=== PATIENT | female | born 1950 | race Two or more races ===

== ENCOUNTER 2016-10-17 17:56 | Inpatient (IN) | payer MEDICARE, MEDICAID ==
[~2016-10-17] VITALS: Ht 154.9 cm; Wt 60.8 kg
[~2016-10-17 17:56] MED LIST: AGG25C; BECL0.07; CARISOPRODOL; FAMO20IN2 IV; FLU220IH IN; FLUNPOW; FURO20TA; HYDR5CAP; LEVAAER4; LEVEMIR; LISI10TA6; LORA-655 PO; METF-86; NITR0.4D11; OME20GT GT; PROM25TA5 PO; SERT-160; SIMV-8; ZOLP10TA6 OR; [UNRECOGNIZED DRUG - CODE]
[2016-10-17 18:46] LABS: Albumin 3.5 g/dL (3.4-5.0); Calcium 8.4 mg/dL (8.5-10.1); Magnesium 2.3 mg/dL (1.6-2.6); Potassium 4.3 mmol/L (3.5-5.1)
[2016-10-17 18:49] LABS: Bilirubin, Total 0.2 mg/dL (0.2-1.0)
[2016-10-17 19:10] LABS: Basophils # (auto) 0 uL; Basophils % (auto) 0.5 % (0.0-2.0); DEFINITIVE VIEW TRANSMISSION; Eosinophils # (auto) 0.1 uL; Eosinophils % (auto) 1.5 % (0.0-7.0); Hematocrit 42.8 % (36.0-46.0); Hemoglobin 13.7 g/dL (12.2-16.2); Lymphocytes % (auto) 36.3 % (10.0-50.0); Mean Corpuscular Hemoglobin 26.6 pg (28.0-32.0); Mean Corpuscular Hgb Conc. 32.1 g/dL (32.0-36.0); Mean Corpuscular Volume 82.8 fL (80.0-100.0); Monocytes # (auto) 0.3 uL; Monocytes % (auto) 5.8 % (0.0-12.0); Neutrophils # (auto) 3.1 uL; Neutrophils % (auto) 55.9 % (37.0-80.0); Platelet Count (auto) 201 10^3/uL (140-450); Red Cell Distribution Width 13.9 % (11.6-16.0); White Blood Cell 5.6 10^3/uL (4.4-10.8)
[2016-10-17] MEDS ORDERED: DEXTROSE 50% SYRINGE 50 ML IV ONE (19:22)
[2016-10-17] MEDS ORDERED: ONDANSETRON HCL 4 MG/2 ML VIAL IV ONE (19:30)
[2016-10-17] MEDS ORDERED: ASPirin 81 mg TAB PO ONE (19:30)
[2016-10-17] MEDS ORDERED: DEXTROSE (50%) 50ML SYRG IV ONE (19:30)
[2016-10-17] MEDS ORDERED: MORPHINE SULFATE 4 MG/ML SYRG IV ONE (19:30)
[2016-10-17 20:15] LABS: B-Type Natriuretic Peptide 47.84 pg/mL (0-100)
[2016-10-17 20:22] LABS: Temperature: 22.7 C (20.0-25.0)
[2016-10-17] MEDS ORDERED: SODIUM CHLORIDE 0.9% 500 ML IV ONE (20:30)
[2016-10-17] MEDS ORDERED: NITROGLYCERIN 0.4 MG SL TAB SL PRN (21:15)
[2016-10-17] MEDS ORDERED: MORPHINE SULF INJ 2 MG/ML SYRINGE 1ML IV PRN (21:15)
[2016-10-17] MEDS ORDERED: ACETAMINOPHEN 325 MG TAB PO PRN (21:15)
[2016-10-17] MEDS ORDERED: LORazepam 0.5 MG TAB PO PRN (21:15)
[2016-10-17] MEDS ORDERED: ONDANSETRON HCL 4 MG/2 ML VIAL IV PRN (21:15)
[2016-10-17] MEDS ORDERED: DEXTROSE (50%) 50ML SYRG IV PRN (21:15)
[2016-10-17] MEDS ORDERED: CARISOPRODOL 350 MG TAB PO PRN (21:15)
[2016-10-17] MEDS ORDERED: HYDROcodone-ACET 5/325MG TAB PO PRN (21:15)
[2016-10-17] MEDS ORDERED: TEMAZEPAM 15 MG CAP PO PRN (21:15)
[2016-10-17] MEDS ORDERED: DOCUSATE SOD 100 MG CAP PO PRN (21:15)
[2016-10-17] MEDS ORDERED: ENOXAPARIN SOD 40 MG/0.4 ML SYRINGE SC SCH (21:22)
[2016-10-17] MEDS: ASPIRIN-DIPYRIDAMOLE (25/200MG) CAPSULE PO SCH (22:00)
[2016-10-17] MEDS ORDERED: ATORVASTATIN 20 MG TAB PO SCH (22:00)
[2016-10-17] MEDS: FAMOTIDINE 20 MG TAB PO SCH (22:09)
[2016-10-18] MEDS: ACCU-CHEK COMFORT CURVE STRIP VI SCH ×3 (00:09→12:00)
[2016-10-18] MEDS: InsuLIN REG 1unit/0.01ml Soln (100units/ml) SC SCH ×2 (00:22→06:41)
[2016-10-18 03:53] LABS: Basophils # (auto) 0 uL; Basophils % (auto) 0.5 % (0.0-2.0); DEFINITIVE VIEW TRANSMISSION; Eosinophils # (auto) 0.1 uL; Eosinophils % (auto) 1.4 % (0.0-7.0); Hematocrit 37.3 % (36.0-46.0); Hemoglobin 11.8 g/dL (12.2-16.2); Lymphocytes # (auto) 2.3 uL; Lymphocytes % (auto) 38.9 % (10.0-50.0); Mean Corpuscular Hemoglobin 26.2 pg (28.0-32.0); Mean Corpuscular Hgb Conc. 31.6 g/dL (32.0-36.0); Mean Corpuscular Volume 83.1 fL (80.0-100.0); Mean Platelet Volume 8.8 fL (7.4-10.4); Monocytes # (auto) 0.3 uL; Monocytes % (auto) 4.9 % (0.0-12.0); Neutrophils # (auto) 3.2 uL; Neutrophils % (auto) 54.3 % (37.0-80.0); Platelet Count (auto) 184 10^3/uL (140-450); Red Cell Distribution Width 13.7 % (11.6-16.0); White Blood Cell 5.9 10^3/uL (4.4-10.8)
[2016-10-18 04:23] LABS: Albumin 3.2 g/dL (3.4-5.0); BUN/Creatinine Ratio 19.2; Calcium 8.5 mg/dL (8.5-10.1); Potassium 4.3 mmol/L (3.5-5.1)
[2016-10-18 04:33] LABS: Bilirubin, Total 0.2 mg/dL (0.2-1.0); Total Protein 5.8 g/dL (6.4-8.2)
[2016-10-18 09:50] VITALS: BP 122/55
[2016-10-18] MEDS: FAMOTIDINE 20 MG TAB PO SCH (10:00)
[2016-10-18] MEDS ORDERED: FUROSEMIDE 20 MG TAB PO SCH (10:00)
[2016-10-18] MEDS: ASPIRIN-DIPYRIDAMOLE (25/200MG) CAPSULE PO SCH (10:00)
[2016-10-18] MEDS ORDERED: LISINOPRIL 10 MG TAB PO SCH (10:00)
[2016-10-18] MEDS ORDERED: SERTRALINE HCL 50 MG TAB PO SCH (10:00)
[2016-10-18] MEDS ORDERED: CHOL20007 OR (11:08)
[2016-10-18] MEDS ORDERED: METO25TA62 PO (11:08)
[2016-10-18] MEDS ORDERED: CLOP75TA41 PO (11:08)
[2016-10-18] MEDS ORDERED: BACL20TA PO (11:08)
[2016-10-18] MEDS ORDERED: DONE5TAB28 PO (11:08)
[2016-10-18] MEDS ORDERED: GABA600T PO (11:08)
[2016-10-18] MEDS ORDERED: LEVO75TA6 PO (11:08)
[2016-10-18 17:23] VITALS: BP 122/55
== END 2016-10-18 17:40 | disposition home or self-care (01) | DRG 313 ==
LOC: ER 18:01 → TELE 18:02 → TELE-E-ADS 10-18 09:13
PROVIDERS: ADMIT Internal Medicine; ATTEND Internal Medicine
DX: R07.89 Other chest pain (principal); E11.22 Type 2 diabetes mellitus with diabetic chronic kidney disease; E11.65 Type 2 diabetes mellitus with hyperglycemia; E78.5 Hyperlipidemia, unspecified; F32.9 Major depressive disorder, single episode, unspecified; N18.3 Chronic kidney disease, stage 3 (moderate); R00.1 Bradycardia, unspecified; I12.9 Hypertensive chronic kidney disease with stage 1 through stage 4 chronic kidney disease, or unspecified chronic kidney disease; I25.10 Atherosclerotic heart disease of native coronary artery without angina pectoris; J44.9 Chronic obstructive pulmonary disease, unspecified; J45.909 Unspecified asthma, uncomplicated; Z82.49 Family history of ischemic heart disease and other diseases of the circulatory system; Z83.3 Family history of diabetes mellitus; Z86.73 Personal history of transient ischemic attack (TIA), and cerebral infarction without residual deficits; Z79.82 Long term (current) use of aspirin; Z79.4 Long term (current) use of insulin; Z79.899 Other long term (current) drug therapy; Z98.51 Tubal ligation status; Z90.89 Acquired absence of other organs; Z98.890 Other specified postprocedural states; Z83.511 Family history of glaucoma
CPT/HCPCS: 36415; 71010; 80053; 82962; 83735; 83880; 84484; 85025; 93005; 94761; 96374; 96375; J1815; J2405

== ENCOUNTER 2017-07-17 14:35 | Inpatient (IN) | payer MEDICARE, MEDICAID ==
[~2017-07-17] VITALS: Ht 152.4 cm; Wt 63.9 kg
[~2017-07-17 14:35] MED LIST changes: +BACL20TA PO; +CHOL20007 OR; +CLOP75TA41 PO; +DONE5TAB28 PO; +GABA600T PO; +LEVO75TA6 PO; +METO25TA62 PO
[2017-07-17] MEDS ORDERED: SODIUM CHLORIDE 0.9% 1,000 ML IV ONE (15:14)
[2017-07-17] MEDS ORDERED: ASPirin 81 mg TAB PO ONE (15:15)
[2017-07-17 15:47] LABS: Basophils # (auto) 0 uL; Eosinophils # (auto) 0.1 uL; Eosinophils % (auto) 2.2 % (0.0-7.0); Hematocrit 39.5 % (36.0-46.0); Hemoglobin 12.9 g/dL (12.2-16.2); Lymphocytes # (auto) 1.6 uL; Lymphocytes % (auto) 39.4 % (10.0-50.0); Mean Corpuscular Hemoglobin 27.7 pg (28.0-32.0); Mean Corpuscular Hgb Conc. 32.7 g/dL (32.0-36.0); Mean Corpuscular Volume 84.6 fL (80.0-100.0); Mean Platelet Volume 8.6 fL (6.9-10.8); Monocytes # (auto) 0.2 uL; Monocytes % (auto) 5.5 % (0.0-12.0); Neutrophils # (auto) 2.1 uL; Neutrophils % (auto) 51.9 % (37.0-80.0); Nucleated Red Blood Cells % 0.1 %; Platelet Count (auto) 130 10^3/uL (140-450); Red Cell Distribution Width 14.5 % (11.8-14.3); White Blood Cell 4.1 10^3/uL (4.4-10.8)
[2017-07-17] MEDS ORDERED: HYDROcodone-ACET 5/325MG TAB PO PRN (16:00)
[2017-07-17] MEDS ORDERED: ONDANSETRON HCL 4 MG/2 ML VIAL IV PRN (16:00)
[2017-07-17] MEDS ORDERED: DEXTROSE (50%) 50ML SYRG IV PRN (16:00)
[2017-07-17] MEDS ORDERED: MORPHINE SULF INJ 2 MG/ML SYRINGE 1ML IV PRN (16:00)
[2017-07-17] MEDS ORDERED: NITROGLYCERIN 0.4 MG SL TAB SL PRN (16:00)
[2017-07-17 16:03] LABS: Albumin 3.3 g/dL (3.4-5.0); Alkaline Phosphatase 85 U/L (45-117); Anion Gap 4 (5-15); Aspartate Aminotransferase 26 U/L (15-37); BUN/Creatinine Ratio 12.9; Bilirubin, Total 0.4 mg/dL (0.2-1.0); Blood Urea Nitrogen 12 mg/dL (7-18); Calcium 8.6 mg/dL (8.5-10.1); Carbon Dioxide 32 mmol/L (21-32); Chloride 100 mmol/L (98-107); GFR African American 77 mL/min; GFR Non-African American 64 mL/min; Glucose 268 mg/dL (74-106); Magnesium 2.3 mg/dL (1.6-2.6); Potassium 4.7 mmol/L (3.5-5.1); Sodium 136 mmol/L (136-145); Total Protein 6.7 g/dL (6.4-8.2)
[2017-07-17] MEDS ORDERED: CLOPIDOGREL BISULFATE 75 MG TAB PO ONE (16:30)
[2017-07-17] MEDS ORDERED: ISOSORBIDE MONONITRATE 60 MG TAB PO ONE (16:30)
[2017-07-17] MEDS ORDERED: FUROSEMIDE 20 MG TAB PO ONE (16:30)
[2017-07-17] MEDS ORDERED: PANTOPRAZOLE 40 MG TAB PO ONE (16:30)
[2017-07-17] MEDS ORDERED: SERTRALINE HCL 50 MG TAB PO ONE (16:30)
[2017-07-17] MEDS ORDERED: LISINOPRIL 10 MG TAB PO ONE (16:30)
[2017-07-17] MEDS: LEVOTHYROXINE SODIUM 25 MCG TAB PO ONE ×2 (16:58→17:06)
[2017-07-17] MEDS: InsuLIN REG 1unit/0.01ml Soln (100units/ml) SC SCH ×2 (17:00→21:50)
[2017-07-17] MEDS ORDERED: SERTRALINE HCL 50 MG TAB ONE (17:07)
[2017-07-17 17:42] VITALS: BP 136/61
[2017-07-17 18:40] LABS: Urine RBC None Seen /hpf (0 - 4)
[2017-07-17 19:03] LABS: Urine Bilirubin Negative (Negative); Urine Blood Negative /uL (Negative); Urine Color Yellow (Yellow); Urine Glucose 1+ mg/dL (Normal); Urine Ketone Negative (Negative); Urine Nitrite Negative (Negative); Urine Squamous Epithelial Cell FEW /hpf (<5); Urine Urobilinogen Normal (Negative)
[2017-07-17] MEDS ORDERED: NITR0.4S29 SL (19:08)
[2017-07-17] MEDS ORDERED: OMEP20CA74 PO (19:08)
[2017-07-17] MEDS ORDERED: ASPI81CH43 PO (19:08)
[2017-07-17] MEDS ORDERED: NITR2.5C PO (19:08)
[2017-07-17] MEDS ORDERED: FLU220IH INH (19:08)
[2017-07-17] MEDS ORDERED: RANO500T2 PO (19:08)
[2017-07-17] MEDS ORDERED: INSLANTI SC (19:08)
[2017-07-17] MEDS ORDERED: INSUINJ18 SC (19:08)
[2017-07-17] MEDS ORDERED: ATOR40TA52 PO (19:08)
[2017-07-17] MEDS ORDERED: HYDR1TAB97 PO (19:08)
[2017-07-17] MEDS ORDERED: ALBU2TAB4 PO (19:08)
[2017-07-17 20:00] VITALS: BP 113/65
[2017-07-17] MEDS: ATORVASTATIN 20 MG TAB PO SCH (21:48)
[2017-07-17] MEDS: ACCU-CHEK COMFORT CURVE STRIP VI SCH ×2 (21:49→21:55)
[2017-07-17] MEDS: METOPROLOL TARTRATE 25 MG TAB PO SCH (21:54)
[2017-07-17 22:00] VITALS: BP 113/65
[2017-07-17] MEDS: RANOLAZINE ER 500 MG TAB PO SCH (22:02)
[2017-07-18] VITALS (7 sets, daily range): BP systolic 87–117; BP diastolic 53–63
[2017-07-18] MEDS: InsuLIN REG 1unit/0.01ml Soln (100units/ml) SC SCH ×4 (06:45→21:51)
[2017-07-18] MEDS: ACCU-CHEK COMFORT CURVE STRIP VI SCH ×4 (06:45→21:51)
[2017-07-18] MEDS: LEVOTHYROXINE SODIUM 25 MCG TAB PO SCH (06:46)
[2017-07-18 07:09] LABS: Anion Gap 5 (5-15); BUN/Creatinine Ratio 14.4; Blood Urea Nitrogen 13 mg/dL (7-18); Calcium 8.3 mg/dL (8.5-10.1); Carbon Dioxide 33 mmol/L (21-32); Chloride 102 mmol/L (98-107); GFR African American 80 mL/min; GFR Non-African American 66 mL/min; Glucose 87 mg/dL (74-106); Potassium 4.6 mmol/L (3.5-5.1); Sodium 140 mmol/L (136-145)
[2017-07-18] MEDS: ISOSORBIDE MONONITRATE 60 MG TAB PO SCH (10:00)
[2017-07-18] MEDS: LISINOPRIL 10 MG TAB PO SCH (10:00)
[2017-07-18] MEDS: METOPROLOL TARTRATE 25 MG TAB PO SCH ×2 (10:00→21:51)
[2017-07-18] MEDS: FUROSEMIDE 20 MG TAB PO SCH (10:13)
[2017-07-18] MEDS: ASPirin 81 mg TAB PO SCH (10:14)
[2017-07-18] MEDS: PANTOPRAZOLE 40 MG TAB PO SCH (10:14)
[2017-07-18] MEDS: RANOLAZINE ER 500 MG TAB PO SCH ×2 (10:14→21:51)
[2017-07-18] MEDS: SERTRALINE HCL 50 MG TAB PO SCH (10:15)
[2017-07-18] MEDS: CLOPIDOGREL BISULFATE 75 MG TAB PO SCH (10:17)
[2017-07-18] MEDS: ATORVASTATIN 20 MG TAB PO SCH (21:51)
[2017-07-18] MEDS ORDERED: TEMAZEPAM 15 MG CAP PO ONE (22:15)
[2017-07-19] VITALS (8 sets, daily range): BP systolic 90–121; BP diastolic 55–68
[2017-07-19] MEDS: ACCU-CHEK COMFORT CURVE STRIP VI SCH ×4 (06:38→21:20)
[2017-07-19] MEDS: LEVOTHYROXINE SODIUM 25 MCG TAB PO SCH (06:38)
[2017-07-19] MEDS: InsuLIN REG 1unit/0.01ml Soln (100units/ml) SC SCH ×4 (06:38→21:30)
[2017-07-19] MEDS: METOPROLOL TARTRATE 25 MG TAB PO SCH (10:00)
[2017-07-19] MEDS: SERTRALINE HCL 50 MG TAB PO SCH (10:05)
[2017-07-19] MEDS: LISINOPRIL 10 MG TAB PO SCH (10:06)
[2017-07-19] MEDS: ASPirin 81 mg TAB PO SCH (10:06)
[2017-07-19] MEDS: FUROSEMIDE 20 MG TAB PO SCH (10:06)
[2017-07-19] MEDS: CLOPIDOGREL BISULFATE 75 MG TAB PO SCH (10:06)
[2017-07-19] MEDS: PANTOPRAZOLE 40 MG TAB PO SCH (10:06)
[2017-07-19] MEDS: ISOSORBIDE MONONITRATE 60 MG TAB PO SCH (10:07)
[2017-07-19] MEDS: RANOLAZINE ER 500 MG TAB PO SCH ×2 (10:10→21:20)
[2017-07-19] MEDS ORDERED: MECLIZINE HCL 25 MG TAB PO PRN (14:45)
[2017-07-19] MEDS ORDERED: LORazepam 2MG/ML-1ML VIAL IV PRN (19:45)
[2017-07-19] MEDS: ATORVASTATIN 20 MG TAB PO SCH (21:19)
[2017-07-20 05:00] VITALS: BP 104/56
[2017-07-20] MEDS: LEVOTHYROXINE SODIUM 25 MCG TAB PO SCH (06:36)
[2017-07-20] MEDS: ACCU-CHEK COMFORT CURVE STRIP VI SCH ×3 (06:36→17:00)
[2017-07-20] MEDS: InsuLIN REG 1unit/0.01ml Soln (100units/ml) SC SCH ×3 (06:45→17:00)
[2017-07-20 08:00] VITALS: BP 97/76
[2017-07-20 09:00] VITALS: BP 116/65
[2017-07-20] MEDS: RANOLAZINE ER 500 MG TAB PO SCH (10:00)
[2017-07-20] MEDS: PANTOPRAZOLE 40 MG TAB PO SCH (10:40)
[2017-07-20] MEDS: CLOPIDOGREL BISULFATE 75 MG TAB PO SCH (10:40)
[2017-07-20] MEDS: ASPirin 81 mg TAB PO SCH (10:40)
[2017-07-20] MEDS: SERTRALINE HCL 50 MG TAB PO SCH (10:40)
[2017-07-20] MEDS: ISOSORBIDE MONONITRATE 60 MG TAB PO SCH (10:43)
[2017-07-20 13:00] VITALS: BP 112/67
[2017-07-20 16:34] VITALS: BP 116/60
[2017-07-20 18:47] VITALS: BP 116/65
== END 2017-07-20 19:22 | disposition home or self-care (01) | DRG 312 ==
LOC: ER 14:35 → TELE 14:36 → TELE-E-ADS 17:07 → TELE-EAST 18:38
PROVIDERS: ADMIT Internal Medicine; ATTEND Nurse Practitioner Acute Care
DX: I95.1 Orthostatic hypotension (principal); I24.8 Other forms of acute ischemic heart disease; I50.42 Chronic combined systolic (congestive) and diastolic (congestive) heart failure; I13.0 Hypertensive heart and chronic kidney disease with heart failure and stage 1 through stage 4 chronic kidney disease, or unspecified chronic kidney disease; I25.10 Atherosclerotic heart disease of native coronary artery without angina pectoris; E11.22 Type 2 diabetes mellitus with diabetic chronic kidney disease; E89.0 Postprocedural hypothyroidism; Y83.8 Other surgical procedures as the cause of abnormal reaction of the patient, or of later complication, without mention of misadventure at the time of the procedure; J44.9 Chronic obstructive pulmonary disease, unspecified; F32.9 Major depressive disorder, single episode, unspecified; E78.00 Pure hypercholesterolemia, unspecified; E78.5 Hyperlipidemia, unspecified; T50.905A Adverse effect of unspecified drugs, medicaments and biological substances, initial encounter; N18.9 Chronic kidney disease, unspecified; Z98.51 Tubal ligation status; Z79.02 Long term (current) use of antithrombotics/antiplatelets; Z79.899 Other long term (current) drug therapy; Z86.73 Personal history of transient ischemic attack (TIA), and cerebral infarction without residual deficits; Z83.511 Family history of glaucoma; Z83.3 Family history of diabetes mellitus; Z82.49 Family history of ischemic heart disease and other diseases of the circulatory system; Z82.3 Family history of stroke; Y92.89 Other specified places as the place of occurrence of the external cause
CPT/HCPCS: 36415; 70450; 70551; 71010; 80048; 80053; 81001; 82962; 83036; 83735; 84443; 84484; 85025; 93005; 93306; 94761; 96360; 97116; 97163; 97530; J1815

== ENCOUNTER 2017-08-16 15:09 | Emergency (ER) | payer MEDICARE, MEDICAID ==
[~2017-08-16] VITALS: Ht 154.9 cm; Wt 63.5 kg
[~2017-08-16 15:09] MED LIST changes: -AGG25C; +ALBU2TAB4 PO; +ASPI81CH43 PO; +ATOR40TA52 PO; -BECL0.07; -CARISOPRODOL; -CHOL20007 OR; -FAMO20IN2 IV; -FLU220IH IN; +FLU220IH INH; -FLUNPOW; -FURO20TA; +HYDR1TAB97 PO; -HYDR5CAP; +INSLANTI SC; +INSUINJ18 SC; -LEVEMIR; -METF-86; -METO25TA62 PO; -NITR0.4D11; -OME20GT GT; +OMEP20CA74 PO; +RANO500T2 PO; -SIMV-8
[2017-08-16 16:24] VITALS: BP 105/32
[2017-08-16] MEDS ORDERED: cefTRIAXone SOD 1,000 MG VL IM ONE (16:45)
== END 2017-08-16 17:18 | disposition home or self-care (01) ==
LOC: ER 15:14
DX: K04.7 Periapical abscess without sinus (principal); J45.909 Unspecified asthma, uncomplicated; E11.22 Type 2 diabetes mellitus with diabetic chronic kidney disease; I12.9 Hypertensive chronic kidney disease with stage 1 through stage 4 chronic kidney disease, or unspecified chronic kidney disease; N18.9 Chronic kidney disease, unspecified; E78.5 Hyperlipidemia, unspecified; I25.10 Atherosclerotic heart disease of native coronary artery without angina pectoris; Z86.73 Personal history of transient ischemic attack (TIA), and cerebral infarction without residual deficits; Z98.51 Tubal ligation status; Z79.82 Long term (current) use of aspirin; Z79.4 Long term (current) use of insulin
CPT/HCPCS: 96372; 99283; J0696

== ENCOUNTER 2018-07-23 18:14 | Emergency (ER) | payer OTHER, MEDICAID ==
[~2018-07-23 18:14] MED LIST changes: -DONE5TAB28 PO; +DONE5TAB31 PO
[2018-07-23 19:09] LABS: Basophils # (auto) 0.1 uL; Basophils % (auto) 1.1 % (0.0-2.0); Eosinophils # (auto) 0.1 uL; Eosinophils % (auto) 1.9 % (0.0-7.0); Hematocrit 39.3 % (36.0-46.0); Hemoglobin 13.3 g/dL (12.2-16.2); Lymphocytes # (auto) 1.8 uL; Lymphocytes % (auto) 33.8 % (10.0-50.0); Mean Corpuscular Hemoglobin 28.2 pg (28.0-32.0); Mean Corpuscular Hgb Conc. 33.9 g/dL (32.0-36.0); Mean Corpuscular Volume 83.1 fL (80.0-100.0); Monocytes # (auto) 0.3 uL; Monocytes % (auto) 5.2 % (0.0-12.0); Neutrophils # (auto) 3.1 uL; Nucleated Red Blood Cells % 0.1 %; Platelet Count (auto) 151 10^3/uL (140-450); Red Blood Cells 4.73 10^6/uL (4.0-5.20); Red Cell Distribution Width 14.4 % (11.8-14.3); White Blood Cell 5.3 10^3/uL (4.4-10.8)
[2018-07-23 19:17] LABS: Chloride 106 mmol/L (98-107); Potassium 3.9 mmol/L (3.5-5.1); Sodium 140 mmol/L (136-145)
[2018-07-23 19:22] LABS: Albumin 3.3 g/dL (3.4-5.0); Anion Gap 8 (5-15); Aspartate Aminotransferase 27 U/L (15-37); BUN/Creatinine Ratio 15.7; Blood Urea Nitrogen 14 mg/dL (7-18); Calcium 8.4 mg/dL (8.5-10.1); Carbon Dioxide 26 mmol/L (21-32); GFR African American 81 mL/min; GFR Non-African American 67 mL/min; Glucose 103 mg/dL (74-106)
[2018-07-23 19:33] LABS: Alanine Aminotransferase 46 U/L (13-56); Alkaline Phosphatase 86 U/L (45-117); Bilirubin, Total 0.2 mg/dL (0.2-1.0); Total Protein 6.9 g/dL (6.4-8.2)
[2018-07-24] MEDS ORDERED: FURO20TA3 PO (00:59)
[2018-07-24] MEDS ORDERED: INSU100I4 SC (00:59)
[2018-07-24] MEDS ORDERED: NITR2.5C PO (00:59)
[2018-07-24] MEDS ORDERED: FAMO-12 PO (00:59)
[2018-07-24] MEDS ORDERED: INSLANTI SC (00:59)
[2018-07-24 04:30] VITALS: BP 98/56
== END 2018-07-24 05:11 | disposition home or self-care (01) ==
LOC: ER 18:14
DX: R51 Headache (principal); R20.0 Anesthesia of skin; R79.1 Abnormal coagulation profile; E11.22 Type 2 diabetes mellitus with diabetic chronic kidney disease; I12.9 Hypertensive chronic kidney disease with stage 1 through stage 4 chronic kidney disease, or unspecified chronic kidney disease; N18.9 Chronic kidney disease, unspecified; J44.9 Chronic obstructive pulmonary disease, unspecified; E78.5 Hyperlipidemia, unspecified; I25.119 Atherosclerotic heart disease of native coronary artery with unspecified angina pectoris; Z86.73 Personal history of transient ischemic attack (TIA), and cerebral infarction without residual deficits
CPT/HCPCS: 36415; 70450; 72125; 80053; 83735; 83880; 84484; 85025; 85379; 93005